=== PATIENT | female | born 1985 | race African-American/Black ===

== ENCOUNTER 2025-10-25 16:50 | Emergency (ER) | payer MEDICAID ==
[~2025-10-25] VITALS: Ht 157.5 cm; Wt 66.0 kg
[2025-10-25 16:53] VITALS: O2SAT 98
[2025-10-25] MEDS: MORPHINE SULFATE 4 MG/ML INJ (FOR IV/IM USE) IV ONE (17:35)
[2025-10-25] MEDS: LABETALOL 5MG/ML 4ML INJ IV ONE (17:36)
[2025-10-25 17:50] LABS: *AMPHETAMINES SCREEN URINE NEGATIVE (NEGATIVE); *BARBITURATES SCREEN URINE NEGATIVE (NEGATIVE); *BENZODIAZEPINES SCREEN URINE NEGATIVE (NEGATIVE); *COCAINE SCREEN URINE NEGATIVE (NEGATIVE)
[2025-10-25 17:51] LABS: CANNABINOID URINE SCREEN PRESUMPTIVE POSITIVE (NEGATIVE); ECSTASY MDMA SCREEN URINE NEGATIVE (NEGATIVE); METHADONE URINE SCREEN NEGATIVE (NEGATIVE); OPIATES URINE SCREEN NEGATIVE (NEGATIVE); PHENCYCLIDINE URINE SCREEN NEGATIVE (NEGATIVE)
[2025-10-25 17:55] LABS: BASOPHILS % 0.9 % (0.0-2.0); EOSINOPHILS % 1.7 % (0.0-5.0); HEMATOCRIT. 38.5 % (36.0-48.0); HEMOGLOBIN. 12.6 g/dL (12.0-16.0); LYMPHOCYTES % 35.8 % (20.0-50.0); MEAN PLATELET VOLUME 8.2 fl (7.4-10.4); MONOCYTES % 9.3 % (2.0-8.0); NEUTROPHILS % 52.3 % (40.0-76.0); PLATELET 268 x1000/uL (130-400); RED BLOOD CELL COUNT 4.03 mill/uL (4.2-5.4); RED CELL DISTRIBUTION WIDTH 13.3 % (11.6-14.6)
[2025-10-25 18:08] LABS: INR 0.9
[2025-10-25 18:11] LABS: CREATININE 0.7 mg/dL (0.6-1.0)
[2025-10-25 18:12] LABS: ETHANOL BLOOD < 10 mg/dL (<10); UREA NITROGEN BLOOD 6 mg/dL (9-23)
[2025-10-25 18:13] LABS: PROTEIN TOTAL 6.8 g/dL (6.0-8.3); TROPONIN I HIGH SENSITIVITY < 4 ng/L (3.0-34)
[2025-10-25 18:14] LABS: ASPARTATE AMINOTRANSFERASE 18 IU/L (<34); BILIRUBIN DIRECT 0.1 mg/dL (<=3.0); BILIRUBIN TOTAL 0.4 mg/dL (0.1-1.0)
[2025-10-25 18:21] LABS: HCG SCREEN NEGATIVE
[2025-10-25 19:23] VITALS: TEMP 36.6
[2025-10-25 20:17] VITALS: BP 136/98; PULSE 60; RESP 12; O2SAT 100
[2025-10-25] MEDS: POTASSIUM CHLORIDE 20MEQ TABLET SR PO ONE (20:24)
[2025-10-25] MEDS ORDERED: IOHEXOL-350 100 ML BOTTLE ONE (23:03)
== END 2025-10-25 20:25 | disposition home or self-care (01) ==
LOC: ER 16:50
DX: R07.89 Other chest pain (principal); I10 Essential (primary) hypertension; Z86.79 Personal history of other diseases of the circulatory system; Z88.5 Allergy status to narcotic agent; Z79.899 Other long term (current) drug therapy
CPT/HCPCS: 80076; 80305; 80048; 81025; 80320; 84703; 83880; 83735; 85025; 85379; 85610; 85730; 84484; 36415; 71045; 71275; 93005; 96374; 96375; 99285; Q9967; J3490; J2270; G0480